=== PATIENT | male | born 1965 | race Hispanic/Latino ===

== ENCOUNTER 2019-03-26 17:35 | Emergency (ER) | payer BC ==
[~2019-03-26] VITALS: Ht 175.3 cm; Wt 90.7 kg
[2019-03-26] MEDS ORDERED: HYDROCODONE/APAP 5MG-325MG TAB ONE (18:08)
[2019-03-26] MEDS ORDERED: TETRACAINE HCL 0.5% OPTH SOLN 4 ML BTL OP ONE (18:15)
[2019-03-26] MEDS ORDERED: HYDROCODONE/APAP 5MG-325MG TAB PO ONE (18:15)
--- NOTE | 2019-03-26 18:35 | Diagnostic Imaging Report ---
Nasal bones CPT code: 79102 Findings: Three views of the nasal bones were obtained. No fractures identified. There is mild leftward nasal septal deviation. No air-fluid levels in the paranasal sinuses. No radiopaque foreign bodies. IMPRESSION: No nasal bone fractures Signed by: Dr. Citlalli Medina MD on 03/26/2019 6:32 PM
== END 2019-03-26 19:06 | disposition home or self-care (01) ==
LOC: FSED 17:35
DX: S00.81XA Abrasion of other part of head, initial encounter (principal); S00.85XA Superficial foreign body of other part of head, initial encounter; S00.31XA Abrasion of nose, initial encounter; W25.XXXA Contact with sharp glass, initial encounter; Y92.488 Other paved roadways as the place of occurrence of the external cause; F17.210 Nicotine dependence, cigarettes, uncomplicated
CPT/HCPCS: 70140; 99283